=== PATIENT | male | born 1990 | race Caucasian/White ===

== ENCOUNTER → 2018-03-23 10:58 | Outpatient (CLI) | payer BC, SELFPAY ==
[2018-03-22 15:14] VITALS: BMI 27.9
--- OUTSIDE RECORDS SUMMARY | 2018-05-28 06:57 | XMS RPT_ITS ---
:1990 Author Organization OHIP Care Team Providers Name Role Phone Dudley Frank WAREHOUSE SELECTOR-C Attending Unavailable Dudley Frank WAREHOUSE SELECTOR-C Attending Unavailable Landon Villanueva Referring Unavailable Dudley Frank WAREHOUSE SELECTOR-C Attending Unavailable Dudley Frank WAREHOUSE SELECTOR-C Referring Unavailable Landon Villanueva Primary Care Unavailable Dudley Frank WAREHOUSE SELECTOR-C Attending Unavailable Landon Villanueva Referring Unavailable PROBLEMS PROBLEMS DATE TYPE CONDITION / CODE ATTENDING STATUS SOURCE 03/23/2018 Unknown J02.9 - Acute Frank, Dudley Active [place] pharyngitis, [facility]SE SELECTOR-C [facility] unspecified [facility] Hospital J02.9(ICD-10) Repository 03/23/2018 Unknown J03.90 - Acute Frank, Dudley Active [place] tonsillitis, [facility]HOUSE SELECTOR-C Community unspecified / Hospital J03.90(ICD-10) Repository 03/22/2018 Unknown J35.01 - Chronic Frank, Dudley Active [place] tonsillitis / WAREHOUSE SELECTOR-C [facility] J35.01(ICD-10) Hospital Repository PROCEDURES PROCEDURES No Procedure Records FoundRESULTS RESULTS INTERNAL MEDICINE Observed: 04/01/2018 Status: F Source: [place] OFFICE VISIT 4:46 PM [facility] REPOSITORY [facility] [address] [place] [address] OFFICE VISIT Date of Service: 04/01/18 MR#: [id number] Acct: [id number] Name: TAMIKA BADILLO Rep #: [id number] : 1990 Provider: Dudley Frank NP Age/Sex: 27/M Location: [facility] Status: Signed Intake Vital Signs04/01/18 Body Mass Index (BMI) 27.9 04/01/18 Height 6 ft Intake Visit Reasons: ASTHMA WORSE Chief Complaint: cough and breathing worse Is patient in pain?: No Allergies latex Allergy (Intermediate, Verified 03/22/18 15:14) Rash adhesive Allergy (Unknown, Verified 03/22/18 15:14) Unknown Medications ibuprofen 200 mg capsule 200 mg PO TID-QID PRN 03/22/18 [History Confirmed 03/22/18] albuterol sulfate HFA 90 mcg/actuation aerosol inhaler 1 - 2 puff INHALATION Q6H PRN #8.5 g 04/01/18 [Rx Confirmed 04/01/18] benzonatate 100 mg capsule 100 mg PO TID PRN #30 cap 04/01/18 [Rx Confirmed 04/01/18] prednisone 20 mg tablet 40 mg PO QDAY #10 tab 04/01/18 [Rx Confirmed 04/01/18] PFSH Medical History Chronic headaches (Chronic) Asthma (Chronic) Family History Sister Anxiety Aunt Autoimmune disease Grandmother Cancer Hypertension Grandfather Myocardial infarction CVA (cerebral vascular accident) Parkinson disease Social History Smoking Status: Never smoker alcohol intake: never substance use type: does not use what type of physical activity do you participate in: aerobics frequency: daily HPI HPI Chief Complaint: cough and breathing worse Details: TAMIKA BADILLO is a 27 M who presents to the office today for an acute visit for cough and wheezing. Patient has a past medical history as listed above significant for asthma. Patient presents today in office with complaints of cough lasting week and a half and wheezing/chest tightness that began last couple of days. Patient states the breathing is worse when he lays down, but improves when he is up and moving at work. Patient states he feels congested in his nose and is complaining of postnasal drip. He has used Mucinex for the last couple days and mixed VapoRub with little relief. States he has a history of asthma in high school that was exercised induced and also a history of pet dander allergies which he used to receive allergy shots for years ago. 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 He denies any other aggravating or alleviating factors. Patient was seen on 03/23 for acute tonsilitis and states that is improving and has follow up appointment with ENT on 04/04. The patient otherwise denies any fever, chills, nausea, vomiting, shortness of breath, chest pain or pressure, palpitations, orthopnea, lower extremity edema, syncope or presyncopal episodes. ROS Const Constitutional: Positive for headache(s); no weight change, body ache, chills, fatigue, sleep problems, fever(s), change in appetite, snoring, weakness, frequent falls or excessive sweating Eyes Eyes: No change in vision, eye pain, light sensitivity or blurry vision ENT ENT: Positive for headache(s), nasal congestion and sore throat; no abnormal hearing, ear pain, tinnitus, neck pain or throat swelling Resp Respiratory: Positive for cough Cough: Yes non-productive and wheezing; no snoring or shortness of breath Cardio Cardiology: No excessive sweating, chest pain at rest, chest pain with exertion, shortness of breath, dyspnea on exertion, palpitations, lightheadedness or orthopnea Gastro GI: No abdominal pain, change in bowel habits, constipation, diarrhea, vomiting, nausea/dyspepsia or cramping Genitourinary Male: No painful urination, urinary incontinence, urinary frequency, urinary urgency, blood in urine, testicle pain or other Musc Musculoskeletal: No neck pain, abnormal walking, joint pain, back pain, limited range of motion, numbness or tingling Skin Skin: Positive for itching (chest and back with cough); no redness, dry skin, lesions, wounds or rash Neuro Neurology: Positive for headache(s); no weakness, frequent falls, abnormal hearing, abnormal walking, numbness, tingling, abnormal speech, dizziness or memory loss Psych Psychiatric: No change in appetite, No memory loss, No anxiety, No depression, No Thoughts of harming yourself/Others Endo Endocrine: No fatigue, excessive sweating, cold intolerance, increased thirst/drinking, heat intolerance, flushing or increased hunger Aller/Imm Allergy/Immunologic: Positive for wheezing and itchy eyes (chest and back with cough); no hives, seasonal allergy symptoms or throat swelling Fausto/Lymp Hematologic/Lymphatic: No easy bleeding, easy bruising or enlarged lymph nodes Exam Const General: cooperative, comfortable, no acute distress Nutritional Appearance: average body habitus, well nourished Orientation: alert, oriented x3 Limitations: mental status not altered HENMT Head: normal to inspection Ears: hearing grossly normal bilaterally, TM's normal bilaterally Nose: external nose normal, no nasal discharge, mucous membranes and turbinates abnormal erythematous Face and sinus: normal facial exam, sinuses nontender Mouth: oral mucosae normal Throat: posterior oropharynx normal, abnormal tonsil (slightly swollen tonsils bilaterally ) bilaterally Eyes General: appearance normal, both eyes and all related structures Conjunctivae: conjunctivae normal Sclera: sclerae normal Neck Neck: no lymphadenopathy, normal visual inspection Resp Effort AND Inspection: normal respiratory effort, able to speak in complete sentences, normal respiratory pattern, symmetric chest movement, no audible wheezes, no cough Auscultation: Bilateral: Clear to Auscultation, Other (Tight/coarse lung sounds) Cardio Palpation: normal PMI Rate: regular rate Heart Sounds: S1 normal, S2 normal, normal S1 and S2, no click, no gallops, no murmurs, no rubs Skin General: no rashes or lesions noted, elasticity normal, turgor normal Lesions: no lesions Rashes: no rashes Neuro General: alert, awake, oriented x3, CN's II-XI intact bilaterally Speech: speech normal Gait: normal gait Motor: muscle tone normal throughout Extrem General: normal to inspection, normal gait, no edema, no pedal edema Psych Appearance: grossly normal Mental Status: mental status grossly normal Affect: normal affect Attitude: cooperative Thought Process: normal Assessment AND Plan Problems 1. Bronchitis J40 2. Mild intermittent asthma with acute exacerbation J45.21 Plan Based on patient history, symptoms and the assessment findings possible diagnoses include bronchitis and acute asthma exacerbation. Plan will be to start patient on albuterol as needed and prednisone 40 mg for 5 days to help with wheezing patient is experiencing. Patient also instructed to take claritin or OTC allergy medication daily to improve allergy symptoms . Tessalon Perles given for prn coughing. Patient instructed on all medications and verbalizes understanding. He plans to follow up as needed for any new or worsening symptoms. Medications New: albuterol sulfate HFA 90 mcg/actuation (ProAi1 - 2 puffs Inhalation Q6H PRN 8.5 grams 1RF r HFA) shortness of breath or wheezing Plan Detail Follow Up as needed Coding Level of Care Code Off vis,est,level 3 Diagnoses Bronchitis J40 Mild intermittent asthma with acute exacerbation J45.21 Asthma severity: mild Asthma persistence: intermittent Asthma complication type: with acute exacerbation 04/01/18 1646 <Electronically signed by Dudley ATKINS> Date Dudley ATKINS Cosigner Signature: Date (if applicable) CC: Observed: 03/23/2018 Status: F Source: [place] CULTURE, THROAT 11:16 AM [facility] REPOSITORY Culture, Throat Normal throat kristina isolated. No beta-hemolytic streptococcus isolated. Performed By: #### M100.1000 #### [facility] [place], [address] INTERNAL MEDICINE Observed: 03/22/2018 Status: F Source: [place] OFFICE VISIT 3:51 PM [facility] REPOSITORY [facility] [address] [place] [address] [place] [address] OFFICE VISIT Date of Service: 03/22/18 MR#: [id number] Acct: [id number] Name: TAMIKA BADILLO Rep #: [id number] : 1990 Provider: Dudley Frank NP Age/Sex: 27/M Location: [facility] Status: Signed Intake Vital Signs03/22/18 Body Mass Index (BMI) 27.9 03/22/18 Height 6 ft 03/22/18 Weight: 200 lb 03/22/18 Body Mass Index (BMI) 27.1 03/22/18 Blood Pressure 120/82 H Intake Visit Reasons: TONSIL PROBLEM Chief Complaint: Tonsils very swollen Is patient in pain?: No Allergies latex Allergy (Intermediate, Verified 03/22/18 15:14) Rash adhesive Allergy (Unknown, Verified 03/22/18 15:14) Unknown Medications ibuprofen 200 mg capsule 200 mg PO TID-QID PRN 03/22/18 [History Confirmed 03/22/18] PFSH Medical History Chronic headaches (Chronic) Asthma (Chronic) Family History Sister Anxiety Aunt Autoimmune disease Grandmother Cancer Hypertension Grandfather Myocardial infarction CVA (cerebral vascular accident) Parkinson disease Social History Smoking Status: Never smoker alcohol intake: never substance use type: does not use what type of physical activity do you participate in: aerobics frequency: daily HPI HPI Chief Complaint: Tonsils very swollen Details: TAMIKA BADILLO, is a 27 M who presents to the office today for an acute visit of ongoing enlarged tonsils and sore throat. He has a past medical history as listed above. The patient was seen by me approximately a month ago with complaints of ongoing enlarged tonsils and tonsillar exudate. He was seen prior to that and was treated in the urgent care empirically with amoxicillin for potential strep as mono was ruled out. The patient states that after completing the antibiotic and continuing with his NSAIDs that the white patches and drainage in the back of his throat had resolved. However he continues to have an intermittent dull sore throat and continues to note tonsillar enlargement. He does state that in the past he was told that he may have to have his tonsils removed, however has not been seen by ENT. Denies any sick contacts. Denies any other aggravating or relieving factors. The patient otherwise denies any fever, chills, nausea, vomiting, shortness of breath, chest pain or pressure, palpitations, orthopnea, lower extremity edema, syncope or presyncopal episodes. ROS Const Constitutional: No chills, fatigue, fever(s), frequent falls, malaise, weakness, sleep problems or change in appetite Eyes Eyes: No blurry vision, change in vision, double vision, discharge or visual disturbances ENT ENT: Positive for sore throat (Tonsils very swollen.) and difficulty swallowing; no abnormal hearing, ear pain, ear pressure, tinnitus or dizziness/vertigo Resp Respiratory: No cough, shortness of breath or wheezing Cardio Cardiology: No chest pain at rest, chest pain with exertion, shortness of breath, dyspnea on exertion, generalized swelling, irregular heart rhythm, lightheadedness, orthopnea, fast heart rate or palpitations Gastro GI: Positive for difficulty swallowing; no abdominal pain, change in bowel habits, constipation, diarrhea, nausea/dyspepsia or vomiting Musc Musculoskeletal: No joint pain, back pain, joint swelling, limited range of motion, numbness or tingling Skin Skin: No change in skin color, itching, rash or wounds Breast Breast: No breast lump or breast pain Neuro Neurology: No frequent falls, weakness, visual disturbances, abnormal hearing, numbness, tingling, unsteady gait/balance, dizziness, loss of vision or memory loss Psych Psychiatric: No change in appetite, No memory loss, No anxiety, No depression, No Thoughts of harming yourself/Others Endo Endocrine: No fatigue, heat intolerance, increased thirst/drinking, increased hunger or increased urination Aller/Imm Allergy/Immunologic: No wheezing, itchy eyes or seasonal allergy symptoms Fausto/Lymp Hematologic/Lymphatic: No easy bleeding, easy bruising or enlarged lymph nodes Exam Const General: cooperative, comfortable, no acute distress Nutritional Appearance: average body habitus, well nourished Orientation: alert, oriented x3 Limitations: mental status not altered [facility] Head: normal to inspection Ears: hearing grossly normal bilaterally Nose: external nose normal Face and sinus: normal facial exam Mouth: oral mucosae normal Throat: abnormal tonsil Neck Lymphatic: lymphadenopathy Other: chronic cystic mass noted midline posterior neck, nontender to touch, pt states has been present for atleast 5 years Resp Effort AND Inspection: normal respiratory effort, able to speak in complete sentences, normal respiratory pattern, symmetric chest movement, no audible wheezes, no cough Auscultation: Bilateral: Clear to Auscultation Cardio Palpation: normal PMI Rate: regular rate Heart Sounds: S1 normal, S2 normal, normal S1 and S2, no click, no gallops, no murmurs, no rubs Skin General: no rashes or lesions noted, elasticity normal, turgor normal Lesions: no lesions Rashes: no rashes Neuro General: alert, awake, oriented x3, CN's II-XI intact bilaterally Speech: speech normal Gait: normal gait Motor: muscle tone normal throughout Extrem General: normal to inspection, normal gait, no edema, no pedal edema Psych Appearance: grossly normal Mental Status: mental status grossly normal Affect: normal affect Attitude: cooperative Thought Process: normal Results [facility] Office Rapid Strep A Negative Last Edit by Elizabeth Amanda on 03/22/18 15:44 Assessment AND Plan Problems 1. Acute pharyngitis J02.9 2. Chronic tonsillitis J35.01 Plan Patient's sore throat and tonsillar exudates have improved since last visit, however tonsils continue to be enlarged and inflow named. Patient to continue with ibuprofen as needed and a referral was made to ENT for evaluation. Discussed red like symptoms requiring urgent medical attention. Patient verbalized understanding. Patient to follow-up as previously scheduled for preventative visit or sooner if needed. Dragon disc Orders Orders: Referrals: Coding Level of Care Code Off vis,est,level 3 Diagnoses Acute pharyngitis J02.9 Chronic tonsillitis J35.01 03/22/18 1551 <Electronically signed by Dudley ATKINS> Date Dudley ATKINS Cosigner Signature: Date (if applicable) CC: INTERNAL MEDICINE Observed: 02/25/2018 Status: F Source: [place] OFFICE VISIT 4:47 PM [facility] [place] [address] [place] [address] OFFICE VISIT Date of Service: 02/25/18 MR#: [id number] Acct: [id number] Name: TAMIKA BADILLO Rep #: [id number] : 1990 Provider: Dudley Frank NP Age/Sex: 27/M Location: [facility] Status: Signed Intake Vital Signs02/25/18 Height 6 ft 02/25/18 Weight: 206 lb 02/25/18 Body Mass Index (BMI) 27.9 02/25/18 Blood Pressure 119/67 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 [place] Chief Complaint: Prob with tonsils, sore throat, seen at Urgent Care on Amoxil Is patient in pain?: Yes (Throat) Pain scale (1-10): 4 Allergies latex Allergy (Intermediate, Verified 02/25/18 15:18) Rash adhesive Allergy (Unknown, Verified 02/25/18 15:31) Unknown Medications amoxicillin 500 mg capsule 500 mg PO TID 02/25/18 [History Confirmed 02/25/18] PFSH Medical History Chronic headaches (Chronic) Asthma (Chronic) Family History Sister Anxiety Aunt Autoimmune disease Grandmother Cancer Hypertension Grandfather Myocardial infarction CVA (cerebral vascular accident) Parkinson disease Social History Smoking Status: Never smoker alcohol intake: never substance use type: does not use what type of physical activity do you participate in: aerobics frequency: daily HPI HPI Chief Complaint: Prob with tonsils, sore throat, seen at Urgent Care on Amoxil Details: TAMIKA BADILLO, is a 27 M who presents to the office today for an acute visit of enlarged tonsils. He denies any significant past medical history. The patient states that his symptoms initially began earlier in the week and he was seen at the urgent care and due to his sore throat and enlarged tonsils with exudates, was tested for mono which was negative and was treated with a prescription of amoxicillin. He states that since Wednesday he thinks his tonsils have become more enlarged. He states that he noticed white drainage from his tonsils, so he used his fingers to try to remove the exudates and he has been using 20% rubbing alcohol solution and white vinegar mouthwash rinses. He states since doing so his tonsils have become more enlarged and inflamed and that he has a dull 2 out of 10 constant sore throat. He denies any sick contacts. He denies any other aggravating or relieving symptoms. The patient otherwise denies any fever, chills, nausea, vomiting, shortness of breath, chest pain or pressure, palpitations, orthopnea, lower extremity edema, syncope or presyncopal episodes. ROS Const Constitutional: Positive for night sweats; no chills, fatigue, fever(s), frequent falls, malaise, weakness, sleep problems or change in appetite Eyes Eyes: Positive for dry eyes; no blurry vision, change in vision, double vision, discharge or visual disturbances ENT ENT: Positive for sore throat, mouth lesions (on tonsils) and post nasal drip; no abnormal hearing, ear pain, ear pressure, tinnitus, dizziness/vertigo, nosebleed/epistaxis or nasal congestion Resp Respiratory: Positive for cough Cough: Yes non-productive; no shortness of breath or wheezing Cardio Cardiology: No chest pain at rest, chest pain with exertion, shortness of breath, dyspnea on exertion, generalized swelling, irregular heart rhythm, lightheadedness, orthopnea, fast heart rate or palpitations Gastro GI: No abdominal pain, change in bowel habits, constipation, diarrhea, nausea/dyspepsia or vomiting Genitourinary Male: No difficulty urinating, burning urination, painful urination, urinary incontinence, urinary frequency, urinary urgency, urinary hesitancy, urinary retention, blood in urine, Frequent nighttime urination/ nocturia, sexual problems, testicle lump or testicle pain Musc Musculoskeletal: Positive for back pain; no joint pain, joint swelling, limited range of motion, numbness or tingling Skin Skin: No change in skin color, itching, rash or wounds Breast Breast: No breast lump or breast pain Neuro Neurology: No frequent falls, weakness, abnormal hearing, numbness, tingling, unsteady gait/balance, dizziness, loss of vision, memory loss or visual disturbances Psych Psychiatric: No memory loss, No anxiety, No change in appetite, No depression, No Thoughts of harming yourself/Others Endo Endocrine: No fatigue, heat intolerance, increased thirst/drinking, increased hunger or increased urination Aller/Imm Allergy/Immunologic: No wheezing, itchy eyes or seasonal allergy symptoms Fausto/Lymp Hematologic/Lymphatic: No easy bleeding, easy bruising or enlarged lymph nodes Exam Const General: cooperative, comfortable, no acute distress Nutritional Appearance: average body habitus, well nourished Orientation: alert, oriented x3 Limitations: mental status not altered HENMT Head: normal to inspection Ears: hearing grossly normal bilaterally Nose: external nose normal Face and sinus: normal facial exam Mouth: oral mucosae normal Throat: abnormal tonsil bilaterally erythema, exudates and hypertrophy 3+ Neck Lymphatic: lymphadenopathy Other: chronic cystic mass noted midline posterior neck, nontender to touch, pt states has been present for atleast 5 years Resp Effort AND Inspection: normal respiratory effort, able to speak in complete sentences, normal respiratory pattern, symmetric chest movement, no audible wheezes, no cough Auscultation: Bilateral: Clear to Auscultation Cardio Palpation: normal PMI Rate: regular rate Heart Sounds: S1 normal, S2 normal, normal S1 and S2, no click, no gallops, no murmurs, no rubs Skin General: no rashes or lesions noted, elasticity normal, turgor normal Lesions: no lesions Rashes: no rashes Neuro General: alert, awake, oriented x3, CN's II-XI intact bilaterally Speech: speech normal Gait: normal gait Motor: muscle tone normal throughout Extrem General: normal to inspection, normal gait, no edema, no pedal edema Psych Appearance: grossly normal Mental Status: mental status grossly normal Affect: normal affect Attitude: cooperative Thought Process: normal Assessment AND Plan Problems 1. Acute tonsillitis J03.90 2. Acute pharyngitis J02.9 Plan Patient is currently being covered for strep on amoxicillin. Discussed with patient to continue with the entirecourse of amoxicillin. Discussed with patient that he should not be utilizing vinegar or alcohol-containing mouthwashes and that he should not try to manually remove any exudates on his tonsils with his fingers. Discussed that this most likely has made the tonsils more inflamed and the sore throat worse. Encourage patient to complete his antibiotic and for inflammation take 800 mg of ibuprofen 3 times a day with food for the next 7 days. Advised on warm salt water gargle swish and spit rinses. Discussed red flag symptoms requiring urgent medical attention. Patient verbalized understanding. Patient to follow-up in 1-2 months for preventative well physical. Dragon disclaimer Medications New: Coding Level of Care Code Off vis,new,level 3 Diagnoses Acute tonsillitis J03.90 Acute pharyngitis J02.9 02/25/18 0362 <Electronically signed by Dudley ATKINS> Date Dudley Frank WAREHOUSE SELECTOR-C Cosigner Signature: Date (if applicable) CC: ALLERGIES ALLERGIES DATE TYPE / CODE NAME / CODE REACTION SEVERITY SOURCE 03/22/2018 Drug adhesive/F00 Unknown Unknown [facility] Allergy/4160 [id number]([facility] [address](SNOMED RM) Repository CT) 03/22/2018 Drug latex/[id number] Rash MO [facility]/4160 89[facility] [address] ENCOUNTERS ENCOUNTERS ADMIT/DISCHARGE ACCOUNT ADMITTING ENCOUNTER LOCATION SOURCE NUMBER CLASS 04/01/2018/ [id number] Ambulatory BMSBuilding:B [place] [address] [place] Repository 03/23/2018 [id number] Ambulatory [place] [facility] ing:[facility] Repository 03/22/2018/ [id number] Ambulatory BMSBuilding:B [place] 9 0 [place].[facility] Repository 02/25/2018/ [id number] Ambulatory BMSBuilding:B [place] 8 9 [place].[facility] Repository PAYERS PAYERS ENCOUNTER GUARANTOR PAYER SUBSCRIBER SOURCE 04/01/2018 ARIE Primary ARIE [place] [id number] [place] Insurance:ANTHEMPolic LONGDOB: Community [address]APT 2KWJOEY y [facility]: [id number] [address]Djo: [id number] Repository Date:[id number] [address], [place] [address]JO: 04/01/2018 Secondary NOT GIVENUNK [place] Insurance:SELF PAY [facility] Number: Effective Repository Date:2018-03-31 03/23/2018 ARIE Primary ARIE [place] [id number] [place] Insurance:ANTHEMPolic LONGDOB: [address] [id number] y Number: [id number] [facility] [place] [address]Ppm: [id number] Repository Date:[id number] [address] () [address], [place] [address]SM: 03/23/2018 Secondary NOT GIVENUNK [place] Insurance:SELF PAY [facility]: Effective Repository Date:2018-03-23 03/22/2018 TAMIKA [id number] Primary TAMIKA LONGDOB: [place] [address] Insurance:ANTHEMPolic [id number] y Number: [facility] [id number]: 330 [id number] Repository [phone] () Date:[id number], [place] [address]OA: 03/22/2018 Secondary NOT GIVENUNK [place] Insurance:SELF PAY [facility] Number: Effective Repository Date:2018-03-18 02/25/2018 TAMIKA [id number] Primary TAMIKA LONGDOB: [place] [address] Insurance:ANTHEMPolic [id number] y Number: Hospital [id number]: [phone] [id number] Repository [phone] () ve Date:[id number] [address], [place] [address]YN: 02/25/2018 Secondary NOT GIVENUNK [place] Insurance:SELF PAY [facility] Number: Effective Repository Date:2018-02-25
== END ==
PROVIDERS: Family Provider Family Medicine; PCP Family Medicine; Referring Provider Nurse Practitioner Family; Visit Provider Nurse Practitioner Family
DX: J03.90 Acute tonsillitis, unspecified (principal)
CPT/HCPCS: 87070

== ENCOUNTER → 2018-04-04 17:34 | Outpatient (CLI) | payer BC, SELFPAY ==
[2018-04-01 10:35] VITALS: BMI 27.9
== END ==
PROVIDERS: Family Provider Family Medicine; PCP Family Medicine; Referring Provider Otolaryngology; Visit Provider Otolaryngology
DX: J02.9 Acute pharyngitis, unspecified (principal)
CPT/HCPCS: 87070

== ENCOUNTER → 2018-05-12 10:29 | Outpatient (CLI) | payer BC, SELFPAY ==
[2018-04-14 11:46] VITALS: BMI 27.9
--- NOTE | 2018-05-12 10:40 | RAD_ITS ---
STUDY: X-RAY CHEST REASON FOR EXAM: Male, 27 years old. Cough. Asthma. TECHNIQUE: PA and lateral views of the chest. COMPARISON: None. FINDINGS: The lungs are mildly hyperexpanded. There is no focal mass or infiltrate. There is no demonstrated pleural abnormality. Normal size heart. Normal mediastinum and rodrigo. Normal visualized pulmonary arteries. Normal visualized aortic arch and descending thoracic aorta. Normal visualized thoracic spine. Normal visualized ribs, clavicles, and shoulders. There is no demonstrated abnormality of the visualized soft tissue structures of the upper abdomen. RAD/Chest PA and Lateral IMPRESSION: No acute cardiopulmonary disease. Electronically Signed: Hay Murphy DO at 19:07 EST Tel [phone], Service support ,
[2018-05-12 11:54] LABS: Anion Gap 7 (5-15); BUN 11 mg/dL (7-18); BUN/Creat Ratio 10.7 RATIO (10-20); Calcium,Total 8.9 mg/dL (8.5-10.1); Chloride 108 mmol/L (98-107); Cholesterol 151 mg/dL (200); Creatinine, Serum 1.03 mg/dL (0.70-1.30); EST Glomerular Filtration Rate 93 mL/min (>60); Est Glom Filt Rate - Afr Amer 113 mL/min (>60); Glucose 81 mg/dL (74-106); High Density Lipoprotein 46 mg/dL; Potassium 4.2 mmol/L (3.5-5.1); Sodium Level 143 mmol/L (136-145); Triglycerides 91 mg/dL; Very Low Density Lipoprotein 18 mg/dL (5-40)
== END ==
PROVIDERS: Family Provider Family Medicine; PCP Family Medicine; Referring Provider Family Medicine; Visit Provider Family Medicine
DX: Z00.00 Encounter for general adult medical examination without abnormal findings (principal); J45.909 Unspecified asthma, uncomplicated
CPT/HCPCS: 36415; 71046; 80048; 80061

== ENCOUNTER → 2018-09-27 16:32 | Outpatient (CLI) | payer BC, SELFPAY ==
[2018-09-27 13:01] VITALS: BMI 27.9
--- NOTE | 2018-09-27 13:15 | CYST_PTH ---
PATIENT: TAMIKA BADILLO LOC: [facility] U#:[id number] AGE/SX: 34/M ROOM: RE09/27/[address]: Dr. Jennifer Torres MD : 1990 BED: DIS: SPEC #: [id number] RECD: 09/27/18 15:40 STATUS: ELVIS REQ #: [id number] KIET: 09/27/18 13:[address]: Jennifer Torres DEPT: SURGICAL PATHOLOGY RECD BY: Julio Reynoso Tissues: Neck, NOS Procedures: Surgery Specimen Level III Comments: @ Originally on account #[id number] Req #[id number] HEADER OPERATION: Excision of cyst on back of neck PRE-OP DIAGNOSIS: Cyst on posterior neck TISSUE SUBMITTED: Cyst on posterior neck MICROSCOPIC DIAGNOSIS Posterior neck cyst, biopsy: Epidermal inclusion cyst. AM:aminah 09/29/18 MICROSCOPIC DESCRIPTION Slides are reviewed. GROSS DESCRIPTION Received in fixative is one container labeled with the patient's name and designated posterior neck cyst. The specimen consists of a previously, partially ruptured mittal cyst measuring 1.5 x 1.5 x 1 cm. The cyst is filled with mittal-white cheesy material. The specimen is serially sectioned and submitted entirely in one cassette. / SEYMOUR:aminah 09/28/18 TC:1 CPT: 58103
== END ==
PROVIDERS: Family Provider Family Medicine; PCP Family Medicine; Referring Provider Surgery; Visit Provider Surgery
DX: L72.0 Epidermal cyst (principal)
CPT/HCPCS: 88304

== ENCOUNTER → 2019-11-02 15:28 | Outpatient (CLI) | payer BC, SELFPAY ==
[2019-11-02 15:07] VITALS: BMI 27.9
[2019-11-02 16:52] LABS: Absolute Lymphocyte Count 2.18 X10^3/uL (0.83-4.51); Absolute Neutrophil Count 5.5 X10^3/uL (2.0-7.7); Basophil% 1.1 % (0-1); Eosinophil# 0.64 X10^3/uL; Eosinophils% 6.9 % (0-5); Hematocrit 46.8 % (40-54); Hemoglobin 15.9 g/dL (13.0-16.5); Lymphocyte # 2.18 X10^3/ul (4.0); Lymphocyte % 23.6 % (19-41); Mean Corpuscular Hgb 30.4 pg (27.0-32.0); Mean Corpuscular Volume 89.5 fL (80-94); Mean Platelet Vol. 10.8 fl (6.2-12.0); Monocyte# 0.76 X10^3/uL; Monocyte% 8.2 % (0-10); NRBC Flagged by Analyzer 0 % (0-5); Neutrophil # 5.51 X10^3/uL (2.7-7.7); Neutrophil % 59.9 % (47-70); Platelet Count 399 K/mm3 (150-450); RBC Distribution Width CV 12.5 % (11.6-14.6); RBC Distribution Width SD 40.9 fl (35.1-43.9); Red Blood Count 5.23 M/mm3 (4.6-6.2); White Blood Count 9.2 K/mm3 (4.4-11.0)
[2019-11-02 17:08] LABS: ALB/GLOB Ratio 1.2 RATIO (0.9-2.4); AST(SGOT) 24 U/L (15-37); Alanine Aminotransfer ALT/SGPT 50 U/L (16-61); Albumin, Serum 4.2 g/dL (3.2-5.0); Alkaline Phosphatase 98 U/L (45-117); Anion Gap 4 (5-15); BUN 11 mg/dL (7-18); BUN/Creat Ratio 9.9 RATIO (10-20); Calcium,Total 9.2 mg/dL (8.5-10.1); Chloride 106 mmol/L (98-107); Creatinine, Serum 1.11 mg/dL (0.70-1.30); EST Glomerular Filtration Rate 85 mL/min (>60); Est Glom Filt Rate - Afr Amer 102 mL/min (>60); Globulin 3.6 g/dL (2.2-4.2); Glucose 80 mg/dL (74-106); Potassium 4.1 mmol/L (3.5-5.1); Protein, Total 7.8 g/dL (6.4-8.2); Sodium Level 142 mmol/L (136-145)
== END ==
PROVIDERS: PCP Family Medicine; Referring Provider Internal Medicine; Visit Provider Internal Medicine
DX: J45.909 Unspecified asthma, uncomplicated (principal)
CPT/HCPCS: 36415; 80053; 85025

== ENCOUNTER → 2021-01-16 09:32 | Outpatient (CLI) | payer OTHER, SELFPAY ==
--- NOTE | 2021-01-16 | LES_PTH ---
PATIENT: TAMIKA BADILLO LOC: [facility] U#:[id number] AGE/SX: 34/M ROOM: RE01/16/[address]: Dr. Landon Villanueva DO : 1990 BED: DIS: SPEC #: [id number] RECD: 01/16/21 12:53 STATUS: ELVIS RIVAS #: [id number] KIET: 01/16/21 00:[address]: Landon Villanueva DEPT: SURGICAL PATHOLOGY RECD BY: Betty Rios Tissues: Skin of neck, NOS Procedures: Surgery Specimen Level IV HEADER OPERATION: Shave excision PRE-OP DIAGNOSIS: Pigmented hairy epidermal nevus TISSUE SUBMITTED: Neck MICROSCOPIC DIAGNOSIS Neck lesion, biopsy: Polypoid intradermal nevus. SEYMOUR:aminah 01/17/2021 MICROSCOPIC DESCRIPTION Slides are reviewed. GROSS DESCRIPTION Received is one container labeled with the patient's name and not further designated. The specimen consists of a piece of mittal-brown skin measuring 0.4 x 0.3 x 0.3 cm. The specimen is inked and submitted entirely in one cassette. / SJ:rg 01/16/21 TC:1 CPT: 03302
== END ==
PROVIDERS: PCP Family Medicine; Referring Provider Family Medicine; Visit Provider Family Medicine
DX: D23.4 Other benign neoplasm of skin of scalp and neck (principal); D22.4 Melanocytic nevi of scalp and neck
CPT/HCPCS: 88305

== ENCOUNTER → 2022-12-10 | Outpatient (CLI) | payer OTHER, SELFPAY ==
[2022-12-10 18:10] LABS: AST(SGOT) 26 U/L (15-37); Alanine Aminotransfer ALT/SGPT 63 U/L (16-61); Albumin, Serum 3.7 g/dL (3.2-5.0); Alkaline Phosphatase 111 U/L (45-117); Anion Gap 5 (5-15); BUN 15 mg/dL (7-18); BUN/Creat Ratio 12.2 RATIO (10-20); Calcium,Total 9.1 mg/dL (8.5-10.1); Chloride 108 mmol/L (98-107); Creatinine, Serum 1.23 mg/dL (0.70-1.30); EST Glomerular Filtration Rate 73 mL/min (>60); Est Glom Filt Rate - Afr Amer 89 mL/min (>60); Globulin 3.6 g/dL (2.2-4.2); Glucose 103 mg/dL (74-106); Potassium 3.6 mmol/L (3.5-5.1); Protein, Total 7.3 g/dL (6.4-8.2); Sodium Level 141 mmol/L (136-145)
== END | disposition home or self-care (01) ==
LOC: BIMLAB 15:12
PROVIDERS: PCP Family Medicine; Visit Provider Family Medicine
DX: J45.909 Unspecified asthma, uncomplicated (principal)
CPT/HCPCS: 36415; 80053